=== PATIENT | female | born 1945 | race Caucasian/White ===

== ENCOUNTER 2021-01-15 10:28 | Day surgery (SDC) | payer MEDICARE, OTHER, SELFPAY ==
--- NOTE | 2021-01-12 08:10 | HP.PCM_ITS ---
History and Physical Date of Admission: 01/15/21 Pre-Op History and Physical ? HPI: The patient is a 75 year old female presenting for discussion regarding surgical intervention for PMB, thickened endometrium and EM polyp on ultrasound. ? pre-operative visit. She is scheduled for Hysteroscopy D&C and polypectomy with symphion, for PMB, thickened endometrium and endometrial polyp on ultrasound. on 01/15/21. Procedure discussed along with risks, benefits and complications. Other alternatives discussed for management. Consent form signed? Yes. ? ? PAST MEDICAL HISTORY PAST MEDICAL HISTORY Diagnosis Date ? Benign neoplasm of rectum and anal canal ? ? Hypertension ? ? Internal hemorrhoids without mention of complication ? ? Localized osteoarthrosis not specified whether primary or secondary, ankle and foot 03/25/2003 ? Rectal bleeding ? ? Swelling of limb 06/27/2003 ? Trigeminal neuralgia ? ? Right side face, flares occ ? ? PAST SURGICAL HISTORY PAST SURGICAL HISTORY Procedure Laterality Date ? CATARACT EXTRACTION W/ INTRAOCULAR LENS IMPLANT HX Left 04/15/2017 ? Symphony Multifocal IOL ? COLONOSCOP W/ OR W/O [facility] SPEC ? 11/24/2015 ? Colonoscopy ? COLONOSCOP W/ OR W/O [facility] SPEC ? 11/27/2018 ? Colonoscopy ? COLONOSCOPY W/BX ? 06/22/10 ? LIGATE FALLOPIAN TUBE ? ? ? Tubal ligation ? OPEN RX ANKLE DISLOCATN+FIXATN ? ? ? ORIF Ankle ? PAST SURGICAL HISTORY OF ? ? ? Microscopic Vascular Decompression ? PAST SURGICAL HISTORY OF Right 2015 ? Vascular decompression trigeminal nerve--right occipatal area ? REMOVAL GALLBLADDER ? 1973 ? Cholecystectomy ? ? ? CURRENT MEDICATIONS Current Outpatient Medications Medication Sig Dispense Refill ? amLODIPine (NORVASC) 5 mg tablet Take 1 tablet by mouth once daily. 90 tablet 3 ? carBAMazepine (TEGRETOL) 200 mg tablet Take 1 tablet by mouth four times daily. ? ? ? gabapentin (NEURONTIN) 300 mg capsule Start with 300 mg at bedtime for 3-5 days. Then add 300 mg to morning for 3-5 days. Then increase to 300 mg three times daily (morning, afternoon, evening). Then, every 3-5 days, add 300 mg alternating between bedtime, then morning, then afternoon doses, until one of the following happens: Good pain relief, side effects which are not improving after a few days to a week or you reach 900 mg three times daily. 270 capsule 1 ? baclofen (LIORESAL) 10 mg tablet Take 1 tablet by mouth three times daily as needed (trigeminal neuralgia). 30 tablet 11 ? No current facility-administered medications for this visit. ? ? ALLERGIES: Patient has no known allergies. ? PERSONAL HISTORY: SOCIAL HISTORY Social History ? Tobacco Use ? Smoking status: Passive Smoke Exposure - Never Smoker ? Smokeless tobacco: Never Used ? Tobacco comment: smokes but outside Vaping Use ? Vaping Use: Never used Substance Use Topics ? Alcohol use: No ? Drug use: No ? FAMILY HISTORY: FAMILY HISTORY FAMILY HISTORY Problem Relation Age of Onset ? Diabetes Mother ? ? Cancer Mother 80 ? bowel ? Glaucoma Mother ? ? Ischemic Heart Disease Father ? ? Breast Cancer Maternal Grandmother ? ? age 68 ? Cancer Sister 60 ? feamle organ ? Cancer Maternal Aunt 80 ? female organ ? Diabetes Sister ? ? Diabetes Brother ? ? ? REVIEW OF SYMPTOMS: negative except as noted above PHYSICAL EXAMINATION: ? VITALS: Blood pressure 146/88, weight 198 lb (89.8 kg). ? GENERAL: The patient is well nourished, well hydrated in no acute distress. , The patient is oriented to time, place, and person. NECK: full range of motion LUNGS: Clear to auscultation bilaterally. no wheezes, rhonchi or rales HEART: Regular rate and rhythm, Normal heart sounds and No murmurs or gallops GENITALIA: deferred ? Indication Postmenopausal bleeding Impression Normal appearing axial, anteverted uterus that measures 64 mm x 36 mm x 44 mm. Large endometrial polyp that appears to be encompassing entire cavity- measuring 3.2cm in greatest dimension. 3D imaging performed. Endometrial thickness 22.4mm. Neither ovary is visualized. No adnexal masses were observed. There is no free fluid visualized in the peritoneal cavity. Technique: Three dimensional imaging was created on a dedicated stand-alone 3D workstation with images created and archived, and supervised and reviewed by the interpreting physician utilizing images from a US Scan performed on 12/12/20 Recommendations recommend hysteroscopic evaluation and removal of polyp. Follow up as clinically indicated. Method Transvaginal, 3D ultrasound examination. Uterus Uterus: Visualized Uterus position: axial, anteverted Uterus long 64 mm Uterus ap 36 mm Uterus tr 44 mm Uterus Vol 53.4 cm? Endometrial thickness, total 22.4 mm Uterine polyp D1 28 mm Uterine polyp D2 32 mm Uterine polyp D3 31 mm Uterine polyp mean 30.3 mm Right Ovary Rt ovary: Not visualized Left Ovary Lt ovary: Not visualized Cul de Sac Visualized. no free fluid visualized ? IMPRESSION: PMB, thickened endometrium and Endometrial polyp ? PLAN: Hysteroscopy, D&C, polypectomy with symphion ? Pt has been counseled on risks/benefits and alternatives of surgery including but not limited to anesthesia, bleeding, infection, uterine perforation with subsequent injury to pelvic structures including bowel, bladder, ureters and vessels. Pt wishes to proceed with surgery at this time. ? covid testing reviewed PRe and Post op instructions reviewed. ? ? I have reviewed and updated past medical and surgical history, medications and allergies Brinda Tavarez MD Office Visit on 01/07/2021 Office Visit on 01/07/2021 Note shared with patient
--- NOTE | 2021-01-12 12:05 | EKG12_ITS ---
Test Reason : PRE OP Blood Pressure : / mmHG Vent. Rate : 055 BPM Atrial Rate : 055 BPM P-R Int : 154 ms QRS Dur : 074 ms QT Int : 412 ms P-R-T Axes : 027 022 016 degrees QTc Int : 394 ms Sinus bradycardia Nonspecific T wave abnormality Abnormal ECG Confirmed by LIONEL DEL REAL, ROOSEVELT ([id number]), magazine editor LISA MULLINS ([id number]) on 01/13/2021 1:53:31 PM Referred By: Brinda Richter Confirmed By:ROOSEVELT FLOWERS MD
[2021-01-12 13:02] LABS: Hematocrit 39.7 % (37-47); Mean Corp Hgb Conc 32.7 g/dL (32-36); Mean Corpuscular Hgb 29.9 pg (27.0-32.0); Mean Corpuscular Volume 91.3 fL (81-99); Mean Platelet Vol. 9.9 fl (6.2-12.0); Platelet Count 149 K/mm3 (150-450); RBC Distribution Width CV 12.2 % (11.6-14.6); RBC Distribution Width SD 40.7 fl (35.1-43.9); Red Blood Count 4.35 M/mm3 (4.2-5.4); White Blood Count 7.4 K/mm3 (4.4-11.0)
[2021-01-12 13:28] LABS: Anion Gap 3 (5-15); BUN 19 mg/dL (7-18); BUN/Creat Ratio 28.1 RATIO (10-20); Calcium,Total 8.8 mg/dL (8.5-10.1); Chloride 109 mmol/L (98-107); Creatinine, Serum 0.68 mg/dL (0.55-1.02); EST Glomerular Filtration Rate 90 mL/min (>60); Est Glom Filt Rate - Afr Amer 109 mL/min (>60); Glucose 100 mg/dL (74-106); Potassium 5.4 mmol/L (3.5-5.1); Sodium Level 135 mmol/L (136-145)
[2021-01-15] VITALS (8 sets, daily range): BP systolic 153–199; BP diastolic 71–82; PULSE 56–70; RESP 16; TEMP 36.1–36.4; O2SAT 98–100; BMI 31.8
--- NOTE | 2021-01-15 | IMM_PTH ---
PATIENT: ELIAS [place]LEY [place] [facility] [id number] AGE/SX: 75/F ROOM: RE01/15/[address]: Dr. Brinda Richter, MDDOB: 1945 BED: DIS: 01/15/2021 SPEC #: [id number] RECD: 01/19/21 14:33 STATUS: CHANDLER REJenniffer #: [id number] MIHAI: 01/15/21 00:[address]: Brinda Richter DEPT: IMMUNOHISTOCHEMISTRY RECD BY: Shruthi Young ENTERED: 01/19/21 14:36 SP TYPE: IMMUNO OTHR DR: Dr. Poncho Yang MD Tissues: Endometrium, NOS Procedures: MSH2 (add) MLH-1 (add) MSH6 (add) Anti-PMS2 (add) KI-67 (add) P53 (add) HER-2-LISA (initial) [facility]YS[facility] [address] [address] SPECIMEN INFORMATION: Tissue Source: Endometrial curettings and endometrial polyps Clinical Info: PMB, thickened endometrium and endometrial polyp Specimen Number: [id number] #1 CPT code: 98997, 31841 x6 METHODOLOGY: Deparaffinized sections of prefer/formalin-fixed tissue or PAP/DQ stained slides are incubated with monoclonal/polyclonal antibodies/oligonucleotide probes. Localization is made via biotin free immunoperoxidase method. Appropriate controls are performed and reacted as expected. Results on target cell population are indicated in the following table: RESULTS: ANTIBODY / CLONE RESULT Ki-67 (30-9) positive, moderate P53 (DO-7) positive, low MLH-1 (M1) negative MSH2 (25D12) positive MSH6 (44) positive PMS2 ([id number]) positive Her-2neu (CB11) negative (0) These tests were developed and their performance characteristics determined by [facility]. They may not have been cleared or approved by the U.S. Food and Drug Administration. The FDA has determined that such clearance or approval is not necessary. The above immunohistochemical/dualISH markers are ordered and reviewed by the Pathologist. INTERPRETATION: Endometrial curettings and endometrial polyps: Endometrial adenocarcinoma. Result of Microsatellite Instability Study: Positive (loss of mismatch protein; microsatellite instability detected). Complete loss of MLH1. SJ:benoit 01/20/2021
[2021-01-15] MEDS: Lactated Ringers 1,000 ML 100 ML IV (11:13)
[2021-01-15 11:15] LABS: Potassium 3.5 mmol/L (3.5-5.1)
--- NOTE | 2021-01-15 12:37 | EX.PCM.DISCH ---
Discharge Instructions Procedure D&C Diet Discharge Diet: No restrictions Activity May resume sexual activity in: 1 week Dressing / Incision Call your doctor if you observe: Fever of 101 or Higher, Inability to urinate, Using more than 1 pad per hour and Uncontrolled pain Follow Up Care Please Follow Up With: Brinda Richter MD When: 1-2 weeks post OP if you need an appointment please call [phone] Test Results: Test results from this visit will be discussed in further detail at your follow-up appointment, if applicable. Discharge Plan Admission Attending Provider: Brinda Richter Primary Care Provider: Poncho Yang Discharge Orders/Prescriptions Prescriptions: No Action amlodipine 5 mg Tablet 5 mg PO DAILY RF: 0 carbamazepine 200 mg Tablet 200 mg PO TID RF: 0 Referrals / Follow Up: Poncho Yang MD [Primary Care Provider] - Disposition Disposition (needs filled in before D/C Order can be placed): Home, Self Care
--- NOTE | 2021-01-15 13:00 | EMB_PTH ---
PATIENT: ELIAS DOOLEY LOC: [facility] – [place] U#:[id number] AGE/SX: 75/F ROOM: RE01/15/[address]: Dr. Brinda Richter, MDDOB: 1945 BED: DIS: 01/15/2021 SPEC #: [id number] RECD: 01/15/21 13:55 STATUS: CHANDLER WILSONJenniffer #: [id number] MIHAI: 01/15/21 13:[address]: Brinda Richter DEPT: SURGICAL PATHOLOGY RECD BY: Kishan Stauffer ENTERED: 01/16/21 07:26 SP TYPE: ENDOM BX/C OTHR DR: Dr. Poncho Yang MD Tissues: Endometrium, NOS Procedures: Surgery Specimen Level IV HEADER OPERATION: Hysteroscopy, D & C Symphion, polypectomy PRE-OP DIAGNOSIS: PMB, thickened endometrium and endometrial polyp TISSUE SUBMITTED: Endometrial curettings and endometrial polyps MICROSCOPIC DIAGNOSIS Endometrial curettings and endometrial polyps, polypectomy: Endometrial adenocarcinoma, FIGO grade I-II with focal squamous differentiation. RONALD:benoit 01/19/2021 COMMENT Immunohistochemistry ([id number]) for microsatellite instability (mismatch repair of protein) will be performed and the results will be reported separately. Case has been reviewed in consultation with Dr. Goldman who concurs with the above diagnosis. IDC:AM MICROSCOPIC DESCRIPTION Slides are reviewed. GROSS DESCRIPTION Received in fixative is one container labeled with the patient's name and designated endometrial curettings and endometrial polyps. The specimen consists of multiple irregular fragments of patel soft tissue that in aggregate measure 7.5 x 3 x 0.8 cm. The specimen is totally submitted in seven cassettes. / RONALD:benoit 01/16/21 TC:0 CPT: 92880 ADDENDUM ADDENDUM ADDENDUM ADDENDUM ADDENDUM ADDENDUM ADDENDUM ADDENDUM ADDENDUM ADDENDUM 01/28/2021 11:18 ADDENDUM 01/28/2021 11:18 ADDENDUM 01/28/2021 11:18 ADDENDUM 01/28/2021 11:18 ADDENDUM 01/28/2021 11:18 This addendum is added to incorporate an outside pathology consultation report. The case was examined at [facility] (#[id number]) and the following diagnosis was rendered. Endometrium, curettings: Endometrial adenocarcinoma, endometrioid type, FIGO grade 2. Please see complete above mentioned consultation report in EMR
--- NOTE | 2021-01-15 13:04 | OP.PCM_ITS ---
Problems Associated Problem List Diagnoses (1) PMB (postmenopausal bleeding): (2) Thickened endometrium: (3) Endometrial polyp: Report of Operation Date of Procedure: 01/15/21 Pre-Operative Diagnosis: PMB, Thickened Endometrium, Endometrial polyp Post-Operative Diagnosis: same Surgery/Procedure Performed:: Hysteroscopy, D&C, Polypectomy with symphion Description of Surgical Findings:: large endometrial polyp noted- no other abnormalities appreciated. Surgeon: Brinda Richter automobile mechanic: [id number] Type of Anesthesia: MAC Specimen's removed: Endometrial curettings, endometrial polyp Drains: none Estimated Blood Loss (mL): <5cc Fluids Replaced: 800 Description of Procedure: Informed consent was obtained the patient was taken the operating room she was placed in supine position. She was given anesthesia. She was then placed in the [facility] where she was prepped and draped in the normal sterile fashion. bladder drained. At this time the weighted speculum was placed in the posterior fornix of vagina. Single-tooth tenaculum was used to gently grasp the anterior lip the cervix. At this time the uterine cavity was sounded to approximately 8 cm. Gentle dilatation was performed once adequate dilatation of the cervix was achieved the hysteroscope using normal saline as a distention medium was placed. Large endometrial polyp appreciated, left funal aspect ?? fibroid vs polypoid tissue. Symphion resecting device used to obtain endometrial curettings and to perform polypectomy. Cavity clear- both tubal ostia visualized. Tissue will be sent to pathology for evaluation. Tenaculum removed. Good hemostasis. Instrument, lap count correct x 2. Vaginal Sweep was negative. Grafts/Implants Used: none Procedure Start Time: 12:51 Procedure Stop Time: 13:01 Complications none Admit VTE Documentation VTE Present on Admission: Yes VTE Mechan Device Prophylaxis: SCD's VTE Pharm Prophylaxis ordered?: No
== END 2021-01-15 14:02 | disposition home or self-care (01) ==
LOC: SDC 10:31 → AC 10:34
PROVIDERS: Anesthesiology; PCP Family Medicine; Referring Provider Obstetrics & Gynecology; Visit Provider Obstetrics & Gynecology
PROC: 0UB98ZZ Excision of Uterus, Via Natural or Artificial Opening Endoscopic (ICD-10-PCS; CPT 58558; principal; 2021-01-15 12:45)
DX: C54.1 Malignant neoplasm of endometrium (principal); N95.0 Postmenopausal bleeding; I10 Essential (primary) hypertension; Z79.899 Other long term (current) drug therapy
CPT/HCPCS: 00952; 58558; 36415; 80048; 84132; 85027; 87426; 88305; 88341; 88342; 93005; C9803; J7120; J2405